=== PATIENT | female | born 1995 | race Hispanic/Latino ===

== ENCOUNTER → 2022-07-16 | Day surgery (SDC) | payer OTHER ==
[~2022-07-16] MED LIST: Acetaminophen 500 MG TAB ONE; Acetaminophen 500 MG TAB PO SCH; Iron Sucrose Complex 500 MG in Sodium Chloride 0.9% 250 ML 250 ML IVPB SCH
== END ==
LOC: CSHSDC/OP 09:08
PROVIDERS: ATTEND Family Medicine
DX: O99.019 Anemia complicating pregnancy, unspecified trimester (principal); Z3A.00 Weeks of gestation of pregnancy not specified
CPT/HCPCS: J1756; J7050

== ENCOUNTER 2022-07-23 10:31 | Day surgery (SDC) | payer OTHER | END 2022-07-23 12:45 | disposition home or self-care (01) | LOC: CSHSDC 10:31 | PROVIDERS: ATTEND Family Medicine | DX: O99.019 Anemia complicating pregnancy, unspecified trimester (principal); D64.9 Anemia, unspecified; Z3A.00 Weeks of gestation of pregnancy not specified | CPT/HCPCS: J1756; J7050 ==

== ENCOUNTER 2022-08-19 10:07 | Inpatient (IN) | payer OTHER ==
[2022-08-18 09:39] LABS: #Eosinphils 0.1 10x3/uL (0.0-0.5); #Monocytes 0.5 10x3/uL (0.0-1.1); #Neutrophils 4.5 10x3/uL (1.5-8.4); %Basophils 0.2 % (0.0-2.0); %Eosinophils 1.7 % (0.0-6.0); %Lymphocytes 21.6 % (18.0-47.0); %Neutrophils 69.2 % (40.0-75.0); Hemoglobin 10.7 g/dL (12.0-15.5); Mean Corpuscular HGB CONC 32.5 g/dL (32.0-36.0); Mean Corpuscular Hemoglobin 28.5 pg (27.0-33.0); Mean Corpuscular Volume 87.5 fl (81.6-98.3); Mean Platelet Volume 11.5 fl (7.4-10.4); Platelet Count 173 10x3/uL (150-450); RBC Distribution Width 18.7 % (11.5-14.5); Red Blood Cell (RBC) Count 3.76 10x6/uL (3.90-5.03); White Blood Cell (WBC) Count 6.4 10x3/uL (3.5-10.5)
[2022-08-18 10:14] LABS: SARS-CoV-2 NAA Rapid Test Not Detected (NotDetected)
[2022-08-18 10:16] LABS: Syphilis Antibody Nonreactive (Nonreactive); Syphilis Antibody Index 0.04 S/CO (<1.00 Non-Reactive)
[2022-08-18 10:17] LABS: HBSAg Index 0.18 S/CO (0-0.99); Hep B Surf Ag Non-Reactive S/CO (NonReactive)
[2022-08-19] MEDS ORDERED: Morphine PF 10 MG/10 ML VIAL ONE (10:27)
[2022-08-19] MEDS ORDERED: Ondansetron PF 4 MG/2 ML Vial IVP PRN (10:34)
[2022-08-19] MEDS ORDERED: hydrALAZINE 20 MG/ML VIAL SLOW IVP PRN (10:34)
[2022-08-19] MEDS ORDERED: Bicitra 30 ML UDCUP PO PRN (10:34)
[2022-08-19] MEDS ORDERED: Promethazine HCl 25 MG/ML VIAL IM PRN (10:34)
[2022-08-19] MEDS ORDERED: Famotidine/PF 20 mg/2ml Vial SLOW IVP PRN (10:34)
[2022-08-19] MEDS ORDERED: PHENYLEPHRINE-NS 100 MCG/ML 10 ML SYRINGE ONE ×6 (10:37→16:49)
[2022-08-19] MEDS ORDERED: Ondansetron PF 4 MG/2 ML Vial ONE (10:37)
[2022-08-19] MEDS ORDERED: Dexamethasone 4 mg/ml Vial ONE (10:37)
[2022-08-19] MEDS ORDERED: Oxytocin 10 UNITS/ML VIAL ONE ×5 (10:37→14:37)
[2022-08-19] MEDS ORDERED: CEFAZOLIN 2 GM in Sodium Chloride 0.9% 100 ML IVPB SCH (10:45)
[2022-08-19] MEDS ORDERED: CEFAZOLIN 2 GM VIAL ONE ×2 (11:42→15:42)
[2022-08-19] MEDS ORDERED: Famotidine/PF 20 mg/2ml Vial ONE (11:42)
[2022-08-19] MEDS ORDERED: Methylergonovine 0.2 MG/ML VIAL ONE (11:42)
[2022-08-19] MEDS ORDERED: Misoprostol 200 MCG TAB ONE (11:43)
[2022-08-19] MEDS ORDERED: Carboprost 250 MCG/ML AMP ONE (11:43)
[2022-08-19 11:47] VITALS: BMI 31.9
[2022-08-19] MEDS ORDERED: Methylergonovine 0.2 MG/ML VIAL IM PRN (12:33)
[2022-08-19] MEDS ORDERED: Misoprostol 200 MCG TAB PR PRN (12:33)
[2022-08-19] MEDS ORDERED: Carboprost 250 MCG/ML AMP IM PRN (12:33)
[2022-08-19] MEDS ORDERED: Tranexamic Acid 1,000 MG/10 ML VIAL ONE ×2 (12:36→14:08)
[2022-08-19] MEDS ORDERED: Atropine Sulfate 0.4 mg/1 ml Vial ONE (14:19)
[2022-08-19] MEDS ORDERED: Ketorolac Tromethamine 30 MG/ML VIAL ONE (14:20)
[2022-08-19] MEDS ORDERED: Phenylephrine 40 MG/NS 250 ML 250 ML ONE (14:30)
[2022-08-19] MEDS ORDERED: Ketamine 50 MG/ML (10ML VIAL) ONE (14:46)
[2022-08-19] MEDS ORDERED: Midazolam HCl 2 mg/2 ml Vial ONE ×3 (14:46→17:08)
[2022-08-19] MEDS ORDERED: Glycopyrrolate 0.2 MG/ML 5 ML SYRINGE ONE (14:46)
[2022-08-19 14:48] LABS: D-Dimer Test 1.73 mg/L FEU (0.19-0.50); PTT 33.3 sec (22.0-33.0); Prothrombin Time 10.5 sec (9.5-12.1)
[2022-08-19] MEDS ORDERED: Succinylcholine 200 MG/10 ml SYRINGE FS ONE (14:48)
[2022-08-19] MEDS ORDERED: Rocuronium Bromide 10 MG/ML (10ML VIAL) ONE (14:59)
[2022-08-19] MEDS ORDERED: Fentanyl 250 MCG/5 ML VIAL ONE (15:11)
[2022-08-19] MEDS ORDERED: NOREPINEPHRINE 8 MG/250 ML-D5W 250 ML IVPB SCH (16:45)
[2022-08-19] MEDS ORDERED: Calcium Chloride 1 GM/10 ML Abboject SYRINGE ONE (16:57)
[2022-08-19 16:58] LABS: #Monocytes 0.6 10x3/uL (0.0-1.1); #Neutrophils 9.9 10x3/uL (1.5-8.4); %Basophils 0.1 % (0.0-2.0); %Eosinophils 0.4 % (0.0-6.0); %Lymphocytes 6.9 % (18.0-47.0); %Neutrophils 87.2 % (40.0-75.0); Hemoglobin 10.2 g/dL (12.0-15.5); Mean Corpuscular HGB CONC 33.7 g/dL (32.0-36.0); Mean Corpuscular Hemoglobin 28.7 pg (27.0-33.0); Mean Corpuscular Volume 85.4 fl (81.6-98.3); Platelet Count 178 10x3/uL (150-450); RBC Distribution Width 16.3 % (11.5-14.5); Red Blood Cell (RBC) Count 3.55 10x6/uL (3.90-5.03); White Blood Cell (WBC) Count 11.4 10x3/uL (3.5-10.5)
[2022-08-19 17:03] LABS: D-Dimer Test 1.37 mg/L FEU (0.19-0.50); PTT 31.3 sec (22.0-33.0); Prothrombin Time 10.5 sec (9.5-12.1)
[2022-08-19] MEDS: NOREPINEPHRINE 8 MG/250 ML-D5W 250 ML IVPB SCH (17:15)
[2022-08-19 17:26] LABS: Actual Bicarbonate (HCO3a) 18.2 mEq/L (22-28); Base Excess (BEa) -5.5 mEq/L (-2.0 to +3.0); CO2 Tension 29.8 mmHg (35.0-45.0); Carboxyhemoglobin (COHb) 0.3 gm% (0.0-3.0); O2 Tension (PaO2), arterial 359.6 mmHg (80.0-100.0); Puncture Site Arterial Line
[2022-08-19] MEDS ORDERED: Propofol BOLUS 1,000 MG/100 ML VIAL IV PRN (18:00)
[2022-08-19] MEDS ORDERED: Lorazepam 2 MG/ML VIAL SLOW IVP PRN (18:00)
[2022-08-19] MEDS ORDERED: FENTANYL 2,000MCG/100-0.9%NACL 100 ML IVPB SCH (18:00)
[2022-08-19] MEDS ORDERED: Propofol 1,000 MG/100 ML VIAL IV PRN (18:00)
[2022-08-19] MEDS ORDERED: DISCONTINUE PREVIOUS NARCOTIC PAIN MEDICATIONS AND BENZODIAZEPINES FS SCH (18:00)
[2022-08-19] MEDS ORDERED: Morphine 2 MG/ML VIAL SLOW IVP PRN (18:00)
[2022-08-19] MEDS: Lactated Ringer's 1,000 ML IV SCH ×2 (18:00→19:10)
[2022-08-19] MEDS ORDERED: Fentanyl BOLUS 250 ML IVPB PRN (18:00)
[2022-08-19] MEDS ORDERED: Electrolyte Replacement Protocol 1 EACH FS SCH (18:45)
[2022-08-19 19:00] LABS: #Monocytes 0.5 10x3/uL (0.0-1.1); #Neutrophils 9.6 10x3/uL (1.5-8.4); %Basophils 0.1 % (0.0-2.0); %Eosinophils 0.1 % (0.0-6.0); %Lymphocytes 8.4 % (18.0-47.0); %Monocytes 4.8 % (0.0-10.0); %Neutrophils 86.2 % (40.0-75.0); Hemoglobin 9.3 g/dL (12.0-15.5); Mean Corpuscular HGB CONC 33.6 g/dL (32.0-36.0); Mean Corpuscular Hemoglobin 28.4 pg (27.0-33.0); Mean Corpuscular Volume 84.7 fl (81.6-98.3); Mean Platelet Volume 11.4 fl (7.4-10.4); Platelet Count 188 10x3/uL (150-450); RBC Distribution Width 16.2 % (11.5-14.5); Red Blood Cell (RBC) Count 3.27 10x6/uL (3.90-5.03); White Blood Cell (WBC) Count 11.2 10x3/uL (3.5-10.5)
[2022-08-19 19:13] LABS: D-Dimer Test 1.12 mg/L FEU (0.19-0.50); PTT 31.3 sec (22.0-33.0); Prothrombin Time 10.6 sec (9.5-12.1)
[2022-08-19] MEDS ORDERED: Boostrix 0.5 ML (Tdap) VIAL (>/=7 yrs of age) IM ONE (19:22)
[2022-08-19] MEDS: CEFAZOLIN 2 GM in Sodium Chloride 0.9% 100 ML IVPB SCH (20:30)
[2022-08-20 01:08] LABS: #Monocytes 0.8 10x3/uL (0.0-1.1); #Neutrophils 8.4 10x3/uL (1.5-8.4); %Basophils 0.1 % (0.0-2.0); %Eosinophils 0.1 % (0.0-6.0); %Lymphocytes 12.9 % (18.0-47.0); %Monocytes 7.3 % (0.0-10.0); %Neutrophils 79.3 % (40.0-75.0); Hemoglobin 8.9 g/dL (12.0-15.5); Mean Corpuscular HGB CONC 33.8 g/dL (32.0-36.0); Mean Corpuscular Hemoglobin 28.4 pg (27.0-33.0); Platelet Count 219 10x3/uL (150-450); RBC Distribution Width 16.7 % (11.5-14.5); Red Blood Cell (RBC) Count 3.13 10x6/uL (3.90-5.03); White Blood Cell (WBC) Count 10.6 10x3/uL (3.5-10.5)
[2022-08-20 01:30] LABS: D-Dimer Test 3.58 mg/L FEU (0.19-0.50); INR-International Normal Ratio 0.9; PTT 28.5 sec (22.0-33.0); Prothrombin Time 10.1 sec (9.5-12.1)
[2022-08-20] MEDS: Lactated Ringer's 1,000 ML IV SCH ×2 (03:08→12:11)
[2022-08-20] MEDS: CEFAZOLIN 2 GM in Sodium Chloride 0.9% 100 ML IVPB SCH ×2 (03:22→12:11)
[2022-08-20] MEDS: Hydrocortisone Sod Succ/PF 100 mg/2 ml Vial IVP SCH ×3 (03:22→20:38)
[2022-08-20] MEDS ORDERED: Vasopressin 20 UNIT, Admixture Fee 1 EACH in Sodium Chloride 0.9% 50 ML IV SCH (03:30)
[2022-08-20 03:43] LABS: Actual Bicarbonate (HCO3a) 22.9 mEq/L (22-28); Base Excess (BEa) -1.7 mEq/L (-2.0 to +3.0); Calcium, Ionized (arterial) 1.16 mmol/L (1.12-1.30); Carboxyhemoglobin (COHb) 0.3 gm% (0.0-3.0); Critical Notified By: CP.PH; Hemoglobin (Hb) 10.5 g/dL (12.0-16.0); O2 Tension (PaO2), arterial 170.5 mmHg (80.0-100.0); Potassium - ABG Lab 3.4 mmol/L (3.70-5.30); Puncture Site Arterial Line; RapidComm Collect By CP.PH
[2022-08-20 04:49] LABS: #Monocytes 0.7 10x3/uL (0.0-1.1); %Basophils 0.1 % (0.0-2.0); %Eosinophils 0.1 % (0.0-6.0); %Lymphocytes 12.9 % (18.0-47.0); %Monocytes 6.9 % (0.0-10.0); %Neutrophils 79.6 % (40.0-75.0); Hemoglobin 9.2 g/dL (12.0-15.5); Mean Corpuscular HGB CONC 34.2 g/dL (32.0-36.0); Mean Corpuscular Volume 84.9 fl (81.6-98.3); Mean Platelet Volume 10.7 fl (7.4-10.4); Platelet Count 172 10x3/uL (150-450); RBC Distribution Width 16.4 % (11.5-14.5); Red Blood Cell (RBC) Count 3.17 10x6/uL (3.90-5.03); White Blood Cell (WBC) Count 10.1 10x3/uL (3.5-10.5)
[2022-08-20 05:08] LABS: ALT (SGPT) 8 U/L (8-55); AST (SGOT) 19 U/L (5-34); Albumin 2.5 g/dL (3.5-5.0); Alkaline Phosphatase 76 U/L (40-110); Anion Gap 10 mmol/L (10-20); BUN (Urea Nitrogen) 7 mg/dL (7.0-18.7); Bilirubin, Total 0.4 mg/dL (0.2-1.2); Calc. Creatinine Clearance 241 mL/min (70-130); Calcium 7.8 mg/dL (7.8-10.44); Carbon Dioxide 21 mmol/L (22-29); Chloride 109 mmol/L (98-107); Estimated GFR 136; Globulin 1.9 g/dL (2.4-3.5); Glucose 94 mg/dL (70-105); Potassium 3.5 mmol/L (3.5-5.1); Protein, Total 4.4 g/dL (6.0-8.3); Sodium 136 mmol/L (136-145)
[2022-08-20] MEDS: NOREPINEPHRINE 8 MG/250 ML-D5W 250 ML IVPB SCH (06:26)
[2022-08-20] MEDS: Potassium Chloride 20 MEQ in Premix Bag 1 BAG IVPB SCH ×3 (06:26→22:53)
[2022-08-20 06:54] LABS: D-Dimer Test 5.2 mg/L FEU (0.19-0.50); INR-International Normal Ratio 0.9; PTT 29.7 sec (22.0-33.0); Prothrombin Time 10.1 sec (9.5-12.1)
[2022-08-20] MEDS ORDERED: Pantoprazole 40 MG VIAL IVP SCH (09:00)
[2022-08-20 11:15] LABS: Hemoglobin A2 2.1 % (1.8-3.2); Hemoglobin F 0 % (0.0-2.0)
[2022-08-20] MEDS ORDERED: Acetaminophen 325 MG TAB PO SCH (16:00)
[2022-08-20 16:55] LABS: Hemoglobin 8.9 g/dL (12.0-15.5); Platelet Count 194 10x3/uL (150-450)
[2022-08-20] MEDS ORDERED: hydrALAZINE 20 MG/ML VIAL SLOW IVP PRN ×2 (17:30→18:06)
[2022-08-20] MEDS ORDERED: Bisacodyl 10 MG SUPP PR PRN (18:06)
[2022-08-20] MEDS ORDERED: Lanolin Ointment 7 GM TUBE TOP PRN (18:06)
[2022-08-20] MEDS ORDERED: Simethicone Chewable 80 MG TAB PO PRN (18:06)
[2022-08-20] MEDS: HYDROcodone/Acetaminophen 5/325 mg Tablet PO PRN (20:38)
[2022-08-20] MEDS: Ferrous Sulfate 325 MG TAB PO SCH (20:39)
[2022-08-20] MEDS: Docusate 100 MG CAP PO SCH (20:39)
[2022-08-20 21:46] LABS: Anion Gap 10 mmol/L (10-20); BUN (Urea Nitrogen) 8 mg/dL (7.0-18.7); Calc. Creatinine Clearance 214 mL/min (70-130); Calcium 8.7 mg/dL (7.8-10.44); Carbon Dioxide 26 mmol/L (22-29); Chloride 107 mmol/L (98-107); Estimated GFR 132; Glucose 109 mg/dL (70-105); Magnesium 1.7 mg/dL (1.6-2.6); Potassium 3.7 mmol/L (3.5-5.1); Sodium 139 mmol/L (136-145)
[2022-08-20] MEDS ORDERED: Magnesium 2 GM/50 ML(in water) 2 GM in Premix Bag 1 BAG IVPB SCH (22:30)
[2022-08-21] MEDS: Potassium Chloride 20 MEQ in Premix Bag 1 BAG IVPB SCH (00:40)
[2022-08-21] MEDS: Lactated Ringer's 1,000 ML IV SCH (03:48)
[2022-08-21] MEDS: Hydrocortisone Sod Succ/PF 100 mg/2 ml Vial IVP SCH (04:40)
[2022-08-21 05:25] LABS: #Monocytes 0.7 10x3/uL (0.0-1.1); #Neutrophils 7.8 10x3/uL (1.5-8.4); %Basophils 0.1 % (0.0-2.0); %Lymphocytes 10.9 % (18.0-47.0); %Monocytes 7.2 % (0.0-10.0); %Neutrophils 81.2 % (40.0-75.0); Hemoglobin 8.1 g/dL (12.0-15.5); Mean Corpuscular HGB CONC 34.5 g/dL (32.0-36.0); Mean Corpuscular Hemoglobin 29.3 pg (27.0-33.0); Mean Corpuscular Volume 85.1 fl (81.6-98.3); Mean Platelet Volume 11.4 fl (7.4-10.4); Platelet Count 171 10x3/uL (150-450); RBC Distribution Width 17.2 % (11.5-14.5); Red Blood Cell (RBC) Count 2.76 10x6/uL (3.90-5.03); White Blood Cell (WBC) Count 9.6 10x3/uL (3.5-10.5)
[2022-08-21 05:53] LABS: Anion Gap 9 mmol/L (10-20); BUN (Urea Nitrogen) 9 mg/dL (7.0-18.7); Calc. Creatinine Clearance 257 mL/min (70-130); Calcium 7.9 mg/dL (7.8-10.44); Carbon Dioxide 26 mmol/L (22-29); Chloride 109 mmol/L (98-107); Estimated GFR 138; Glucose 117 mg/dL (70-105); Magnesium 2.1 mg/dL (1.6-2.6); Potassium 3.9 mmol/L (3.5-5.1); Sodium 140 mmol/L (136-145)
[2022-08-21] MEDS: HYDROcodone/Acetaminophen 5/325 mg Tablet PO PRN ×3 (06:15→16:09)
[2022-08-21] MEDS: Ferrous Sulfate 325 MG TAB PO SCH ×2 (09:30→21:00)
[2022-08-21] MEDS: Docusate 100 MG CAP PO SCH ×2 (09:30→21:00)
[2022-08-21 21:14] VITALS: BP 104/63; TEMP 97.5
== END 2022-08-21 21:50 | disposition home or self-care (01) | DRG 783 ==
LOC: EEVIPCON 10:07 → CSHLD 10:07 → CSHIMCU 17:41 → CSHPED 08-21 07:54
PROVIDERS: ADMIT Student in an Organized Health Care Education/Training Program; ATTEND Student in an Organized Health Care Education/Training Program
PROC: 10D00Z1 Extraction of Products of Conception, Low, Open Approach (ICD-10-PCS; principal; 2022-08-19)
PROC: 0UT70ZZ Resection of Bilateral Fallopian Tubes, Open Approach (ICD-10-PCS; 2022-08-19)
PROC: 0UT90ZZ Resection of Uterus, Open Approach (ICD-10-PCS; 2022-08-19)
PROC: 0UT10ZZ Resection of Left Ovary, Open Approach (ICD-10-PCS; 2022-08-19)
PROC: 0W3R0ZZ Control Bleeding in Genitourinary Tract, Open Approach (ICD-10-PCS; 2022-08-19)
PROC: 30233N1 Transfusion of Nonautologous Red Blood Cells into Peripheral Vein, Percutaneous Approach (ICD-10-PCS; 2022-08-19)
PROC: 30233K1 Transfusion of Nonautologous Frozen Plasma into Peripheral Vein, Percutaneous Approach (ICD-10-PCS; 2022-08-19)
PROC: 30233M1 Transfusion of Nonautologous Plasma Cryoprecipitate into Peripheral Vein, Percutaneous Approach (ICD-10-PCS; 2022-08-19)
PROC: 6A550Z2 Pheresis of Platelets, Single (ICD-10-PCS; 2022-08-19)
PROC: 3E043XZ Introduction of Vasopressor into Central Vein, Percutaneous Approach (ICD-10-PCS; 2022-08-19)
DX: O34.211 Maternal care for low transverse scar from previous cesarean delivery (principal); G93.41 Metabolic encephalopathy; J96.01 Acute respiratory failure with hypoxia; T81.19XA Other postprocedural shock, initial encounter; O72.1 Other immediate postpartum hemorrhage; O99.43 Diseases of the circulatory system complicating the puerperium; O99.355 Diseases of the nervous system complicating the puerperium; E87.20 Acidosis, unspecified; D62 Acute posthemorrhagic anemia; Z3A.39 39 weeks gestation of pregnancy; Z37.0 Single live birth; Z20.822 Contact with and (suspected) exposure to COVID-19; O99.02 Anemia complicating childbirth; F32.A Depression, unspecified; O99.344 Other mental disorders complicating childbirth; I95.9 Hypotension, unspecified; O99.53 Diseases of the respiratory system complicating the puerperium; Y83.8 Other surgical procedures as the cause of abnormal reaction of the patient, or of later complication, without mention of misadventure at the time of the procedure; O75.4 Other complications of obstetric surgery and procedures; I49.3 Ventricular premature depolarization; E87.8 Other disorders of electrolyte and fluid balance, not elsewhere classified; O99.285 Endocrine, nutritional and metabolic diseases complicating the puerperium
CPT/HCPCS: 36415; 36430; 51702; 71045; 80048; 80053; 82728; 82805; 83021; 83735; 85025; 85049; 85300; 85362; 85379; 85384; 85610; 85730; 86140; 86780; 86850; 86900; 86901; 87340; 88307; 93005; 93010; 94002; 94003; 94760; C9113; J0461; J1100; J1720; J1885; J2250; J2274; J2405; J2590; J3010; J3475; J3480; J3490; J7120; P9012; P9016; P9035; P9048; S0028; U0002